=== PATIENT | male | born 1950 | race Caucasian/White ===

== ENCOUNTER 2018-02-20 19:15 | Emergency (ER) | payer OTHER, MEDICARE ==
[~2018-02-20] VITALS: Ht 172.7 cm; Wt 96.6 kg
[2018-02-20 19:19] VITALS: BP 181/77
--- NOTE | 2018-02-20 19:29 | ED UPPER/LOWER EXTREMITY COMPL ---
History of Present Illness General Chief Complaint: Animal/Insect Bite Stated Complaint: LEFT FOOT, INSECT BITE? Source: patient Exam Limitations: no limitations Vital Signs & Intake/Output Vital Signs & Intake/Output Vital Signs Date Time Temp Pulse Resp B/P B/P Pulse O2 O2 Flow FiO2 Mean Ox Delivery Rate 02/20 1919 98.1 98 18 181/77 76 Room Air Allergies Coded Allergies: No Known Allergies (02/20/18) Reconcile Medications Hydrocortisone (Ala-Steven) 2.5 % CREAM..G. 1 RICHA TOP TID PRN ITCHING 7 DAYS MAX Mupirocin Calcium (Bactroban) 2 % CREAM..G. 1 RICHA TOP TID INFECTION apply to affected area(s) X 1 WEEK Triage Note: PT FROM HOME C/O INSECT BITE TO PTS LEFT FOOT X1 DAY. PT STATES LAST NIGHT "SOMETHING FROM THE BED BIT MY FOOT" PTS FOOT HAS A SMALL RED RASH, PT STATES ITCHY. PT STATES "YEAH I THINK SOMETHING FROM MY DOGS OR ITS IN THE BED, IT LOOKS ROTTING LIKE SOMETHING IS EATING IT, WE ARE GETTTING THE WHOLE HOUSE FUMEAGATED SOON" VSS. Triage Nurses Notes Reviewed? yes Onset: Gradual Duration: day(s): Severity: mild Pain/Injury Location: Left: Foot. Method of Injury: "i THINK AN INSECT BIT ME." Associated Symptoms: ITCHING, REDNESS HPI: 67 yo gentleman h/o diabetes, presents with 1 day of itching, redness, mild tenderness on dorsum of left ankle. "I think the dog brought in some bugs ... and brought it into the bed." He notes no streaking or joint swelling, no fever, weakness, drainage. He is otherwise well. Past History Travel History Traveled to [place] past 21 day No Medical History Any Pertinent Medical History? see below for history Cardiovascular: hypertension Endocrine: diabetes Surgical History Surgical History: non-contributory Psychosocial History What is your primary language Nigerien Tobacco Use: Never used Family History Hx Contributory? No Review of Systems Review of Systems Constitutional: Reports: no symptoms. EENTM: Reports: no symptoms. Respiratory: Reports: no symptoms. Cardiovascular: Reports: no symptoms. Gastrointestinal/Abdominal: Reports: no symptoms. Genitourinary: Reports: no symptoms. Musculoskeletal: Reports: no symptoms. Skin: Reports: no symptoms. Neurological/Psychological: Reports: no symptoms. Hematologic/Endocrine: Reports: no symptoms. Immunological: Reports: no symptoms. All Other Systems: Reviewed and Negative Physical Exam Physical Exam General Appearance: well developed/nourished, mild distress Head: atraumatic Eyes: Bilateral: normal appearance. Ears, Nose, Throat: normal pharynx Neck: normal inspection Foot Left: 2x3cm area of superficial erythema, small excoriation, no lymphangitic streaking, no significant induration, c/w dermatitis or superficial infection Progress Differential Diagnosis: infection/dermaititis/insect bite Plan of Care: bactroban and hydrocortisone... counseled him to follow up in 24 hours if not improving. Departure Departure Disposition: HOME OR SELF CARE Condition: Stable Clinical Impression Primary Impression: Insect bite Referrals: Mendoza Amin DO (PCP/Family) Departure Forms: Customer Survey General Discharge Information Prescriptions: Current Visit Scripts Mupirocin Calcium (Bactroban) 1 RICHA TOP TID #30 GM apply to affected area(s) X 1 WEEK Hydrocortisone (Ala-Steven) 1 RICHA TOP TID PRN ITCHING #1 TUBE 7 DAYS MAX
[2018-02-20] MEDS ORDERED: BACTROBAN15 GM TOP (19:31)
[2018-02-20] MEDS ORDERED: ALA-CORT30 GM TOP (19:31)
== END 2018-02-20 19:43 ==
LOC: ERH 19:15
DX: S90.862A Insect bite (nonvenomous), left foot, initial encounter (principal); W57.XXXA Bitten or stung by nonvenomous insect and other nonvenomous arthropods, initial encounter; Y92.9 Unspecified place or not applicable; Y93.9 Activity, unspecified